=== PATIENT | female | born 1980 | race Caucasian/White ===

== ENCOUNTER → 2017-07-21 | Outpatient (CLI) | payer OTHER ==
[2017-07-21 14:29] LABS: Appearance,Urine Cloudy (Clear); Bilirubin,Urine Negative (Negative); Blood,Urine Trace (Negative); Color,Urine Yellow; Glucose,Urine (UA) Negative (Negative); Ketones,Urine Negative (Negative); Leukocyte Esterase,Urine Trace (Negative); Mucus,Urine Rare /hpf; Nitrite,Urine Negative (Negative); PH, Urine 5.5 (5.0-8.0); Protein,Urine Negative (Negative); RBC,Urine 1 /hpf (0-5); Specific Gravity,Urine 1.015 (1.001-1.035); Squamous Epithelial Cell,Urine 7 /hpf (0-4); Urobilinogen,Urine <2.0 mg/dL (<2.0); WBC,Urine 2 /hpf (0-5)
[2017-07-21 14:35] LABS: HCT 42.6 % (34.0-46.0); HGB 14.5 gm/dL (11.4-16.0); MCH 29.7 pg (25.0-35.0); MCHC 34.1 g/dL (31.0-37.0); MCV 87.1 fL (80.0-100.0); Mean Platelet Volume 7.7; Platelet Count 211 k/uL (150-450); RBC 4.89 m/uL (3.80-5.40); RDW 12.2 % (11.5-15.5); WBC 6.8 k/uL (3.8-10.6)
--- NOTE | 2017-07-21 15:07 | XR ---
EXAMINATION TYPE: XR chest 2V DATE OF EXAM: 07/21/2017 COMPARISON: NONE HISTORY: Wellness check, Z00.00 TECHNIQUE: Frontal and lateral views of the chest are obtained. FINDINGS: There is no focal air space opacity, pleural effusion, or pneumothorax seen. The cardiac silhouette size is within normal limits. The osseous structures are intact. IMPRESSION: No acute cardiopulmonary process.
[2017-07-21 15:33] LABS: ALT 19 U/L (9-52); AST 16 U/L (14-36); Albumin 4.3 g/dL (3.5-5.0); Alkaline Phosphatase 45 U/L (38-126); Anion Gap 10 mmol/L; Blood Urea Nitrogen 14 mg/dL (7-17); Calcium 9.9 mg/dL (8.4-10.2); Carbon Dioxide 25 mmol/L (22-30); Chloride 105 mmol/L (98-107); Cholesterol 176 mg/dL (<200); Glucose 87 mg/dL (74-99); HDL Cholesterol 62 mg/dL (40-60); LDL Cholesterol,Calculated 95 mg/dL (0-99); Potassium 3.9 mmol/L (3.5-5.1); Sodium 140 mmol/L (137-145); Total Bilirubin 0.8 mg/dL (0.2-1.3); Total Protein 7.5 g/dL (6.3-8.2); Triglycerides 97 mg/dL (<150)
[2017-07-21 15:46] LABS: T4, Free (Free Thyroxine) 1.02 ng/dL (0.78-2.19)
== END | disposition home or self-care (01) ==
LOC: LABWHC1 13:53
PROVIDERS: ATTEND Internal Medicine
DX: Z00.00 Encounter for general adult medical examination without abnormal findings (principal); R51 Headache; I11.9 Hypertensive heart disease without heart failure; R35.0 Frequency of micturition
CPT/HCPCS: 36415; 71046; 80053; 80061; 81001; 84439; 84443; 85027

== ENCOUNTER → 2017-09-26 | Outpatient (CLI) | payer OTHER ==
[2017-09-26 15:13] VITALS: BP 120/85; PULSE 74; TEMP 96.7; BMI 32.4
--- NOTE | 2017-09-26 16:10 | P.HPOB ---
History of Present Illness H&P Date: 09/26/17 Chief Complaint: The patient is here for her routine gynecologic exam. This is a 37-year-old G2 PII within LMP of 09/26/2017. She is status post tubal ligation. She is here to establish with this office. She says it has been about 12 years since her last pelvic exam. She has been experiencing some imani-vulvar and imani-anal irritation around the time of her periods. She has noticed this for about one year. She denies vaginal discharge. She is requesting STD screening because of spousal infidelity. She found out about her 's infidelity about 6 months ago. She has not been sexually active with him since and is in the process of getting a divorce. She is otherwise without gynecologic complaints. She states her menses are regular every month. Review of Systems She states her weight can fluctuate between 180 and 195 pounds. She denies respiratory, cardiac, or G.I. problems. Past Medical History Past Medical History: No Reported History Additional Past Medical History / Comment(s): Past [employer] history: she has a history of trichomonas which was treated in the past. She has no other history of STDs. She has had to vaginal deliveries. History of Any Multi-Drug Resistant Organisms: None Reported Past Surgical History: No Surgical Hx Reported Past Psychological History: Depression Smoking Status: Former smoker Past Alcohol Use History: Occasional Past Drug Use History: Marijuana Additional History: She is currently in the process of getting a divorce because of spousal infidelity. She is not seen anybody at this time. - Past Family History Mother Family Medical History: No Reported History Additional Family Medical History / Comment(s): Grandmother had skin cancer. Medications and Allergies Home Medications Medication Instructions Recorded Confirmed Type DULoxetine HCL [Cymbalta] mg PO DAILY 09/26/17 History Allergies Allergy/AdvReac Type Severity Reaction Status Date / Time Penicillins AdvReac Rash/Hives Unverified 09/26/17 15:08 Exam - Vital Signs Vital signs: Vital Signs Temp Pulse BP 09/26/17 15:09 96.7 F L 74 120/85 Intake and Output 09/26/17 09/26/17 09/26/17 06:59 14:59 22:59 Other: Weight 88.451 kg Height 5'5", BMI 32.4. This is a well-developed well-nourished female who is alert and oriented times 3 in no acute distress. HEENT: Within normal limits. NECK: Supple without mass or thyromegaly. CHEST AND LUNGS: Clear to auscultation. HEART: Regular rate and rhythm. BREASTS: Are without mass or discharge. AXILLARY EXAM: Negative for adenopathy. BACK: Negative for CVA tenderness. ABDOMEN: Soft, nontender, without palpable masses. PELVIC EXAM: there are external condyloma noted in the perineal and perianal areas. They extend to the inner left buttock and up to the border of the left labia majora. They all measure approximately 8 mm and are around with slightly irregular edges consistent with condyloma. There are 9 the left of the midline and one to the right of the midline. There are no ulcerated lesions. Cervix and vagina appear normal and there is small menstrual blood consistent with the start of her menses. There is no unusual discharge. There is no evidence of prolapse. The uterus is midposition, nongravid size and nontender. There are no palpable adnexal masses or tenderness. RECTAL EXAM: negative for mass or tenderness and is negative for occult blood. EXTREMITIES: Nontender. IMPRESSION: 1. 37-year-old female who status post tubal ligation with external perineal and perianal condyloma. 2. History of spousal infidelity. PLAN: 1. Pap smear was performed. 2. Self breast awareness was discussed. 3. GC and chlamydia testing from the cervix were obtained. 4. Blood tests will include HIV, RPR, hepatitis B surface antigen, and hepatitis C antibody. 5. We have had a long discussion regarding condyloma. She understands that this has most likely been passed sexually and is from the human papilloma virus. We have discussed various options including Aldara treatment, TCA treatment, surgical removal and laser treatment. The patient like to try Aldara at home. She will apply this 3 times weekly and is to read the instructions thoroughly before using it. She will call if she has any problems. She will return in 4 weeks. We will use this up to 16 weeks. 6. STD prevention was discussed. I have stressed the importance of limiting sexual partners and the importance of using, and if she is sexually active. 7. She will also return in one year and PRN.
[2017-09-27 00:49] LABS: Hepatitis C IgG Antibody Non-Reactive (Non-Reactive)
[2017-09-27 01:30] LABS: HIV AB P24 Non-Reactive (Non-Reactive); HIV P24 AG Non-Reactive (Non-Reactive)
--- NOTE | 2017-09-27 10:41 | P.PN ---
Progress Note - Text Progress Note Date: 09/27/17 Aldara was prescribed for external genital warts. Preauthorization was required by her insurance. Preauthorization was requested and denied. Office treatment with podophilox or similar type office treatment is required according to the insurance is denial letter. The patient was notified of this and will be referred for treatment of external anogenital condyloma.
[2017-09-28 12:54] LABS: C. trachomatis,PCR Negative (Neg,Equiv); Chlamydia trachomatis Source Cervix; N. gonorrhoeae,PCR Negative (Neg,Equiv); Neisseria Source Cervix
== END ==
LOC: WWCWWP 14:45
PROVIDERS: ATTEND Obstetrics & Gynecology
DX: Z11.3 Encounter for screening for infections with a predominantly sexual mode of transmission (principal)
CPT/HCPCS: 36415; 86780; 86803; 87340; 87390; 87491; 87591

== ENCOUNTER → 2017-10-11 | Outpatient (CLI) | payer OTHER ==
[2017-10-11 11:54] VITALS: BP 127/81; PULSE 75; TEMP 98; BMI 32.4
--- NOTE | 2017-10-11 11:56 | P.PN ---
Progress Note - Text Progress Note Date: 10/11/17 This is a 37-year-old female who is here to have a repeat Pap smear. Her Pap smear was unsatisfactory secondary to blood on the Pap smear on 09/26/2017. Her LMP was 09/26/2017. She is no longer bleeding at this time. Cervix and vagina appear normal. There is no unusual discharge. Impression: unsatisfactory Pap smear plan: repeat Pap smear was done today. Attempts are still being made for referral for the anogenital condyloma.
== END | disposition home or self-care (01) ==
LOC: WWCWWP 11:29
PROVIDERS: ATTEND Obstetrics & Gynecology
DX: Z53.9 Procedure and treatment not carried out, unspecified reason (principal)